=== PATIENT | male | born 1990 | race Caucasian/White ===

== ENCOUNTER 2018-06-21 08:13 | Day surgery (SDC) | payer OTHER ==
[2018-06-21 08:42] VITALS: BMI 29.8
[2018-06-21 08:51] VITALS: O2SAT 100
[2018-06-21] MEDS ORDERED: Lactated Ringer's 500 ML IV SCH (09:30)
[2018-06-21] MEDS ORDERED: Lactated Ringer's 500 ML IV ONE (09:36)
[2018-06-21] MEDS ORDERED: Midazolam 2 MG/2 ML VIAL ONE (09:39)
[2018-06-21] MEDS ORDERED: Propofol 10 mg/ml Inj (20 ML) ONE ×2 (09:39→10:06)
[2018-06-21] MEDS ORDERED: Lidocaine Hydrochloride 5 ML INJ ONE (09:42)
[2018-06-21 12:20] VITALS: TEMP 97
[2018-06-21 12:27] VITALS: BP 115/70; PULSE 68; RESP 20
== END 2018-06-21 11:30 | disposition home or self-care (01) ==
LOC: C.ENDO 08:13
PROVIDERS: ATTEND Internal Medicine Gastroenterology
DX: R12 Heartburn (principal); R19.4 Change in bowel habit; K64.8 Other hemorrhoids; K20.9 Esophagitis, unspecified; K29.70 Gastritis, unspecified, without bleeding; K31.9 Disease of stomach and duodenum, unspecified
CPT/HCPCS: 43239; 45380; 88305; 88312; 88313; 88342; J2250; J2704; J7120